=== PATIENT | male | born 1985 | race Two or more races ===

== ENCOUNTER 2017-06-12 18:44 | Emergency (ER) | payer OTHER ==
[~2017-06-12] VITALS: Ht 175.3 cm; Wt 154.2 kg
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
[2017-06-12] MEDS ORDERED: CYCLOBENZAPRINE10 MG ORAL (19:41)
[2017-06-12] MEDS ORDERED: IBUPROFEN600 MG ORAL (19:42)
[2017-06-12 19:52] VITALS: BP 137/85
== END 2017-06-12 19:52 | disposition home or self-care (01) ==
LOC: EMR 19:40
DX: S46.912A Strain of unspecified muscle, fascia and tendon at shoulder and upper arm level, left arm, initial encounter (principal); M54.5 Low back pain; V43.52XA Car driver injured in collision with other type car in traffic accident, initial encounter; Y93.9 Activity, unspecified; Y92.410 Unspecified street and highway as the place of occurrence of the external cause
CPT/HCPCS: 99284